=== PATIENT | male | born 1975 | race Caucasian/White ===

== ENCOUNTER 2019-12-05 13:25 | Inpatient (IN) | payer OTHER ==
[~2019-12-05] VITALS: Ht 185.4 cm; Wt 100.7 kg
--- NOTE | 2019-12-05 14:00 | NUR ---
PT TO ROOM 11 PER WHEELCHAIR. PT IS AWAKE A/O X3. PT C/O BILATERAL PEDAL AND LOWER LEG SWELLING AND REDNESS. PT HAS A CUT ON HIS LEFT FOOT BETWEEN 4TH AND 5TH DIGIT. BANDAID REMOVED AND YELLOW FOUL SMELLING DRAINGAGE FROM SITE. PT HAS A PUNCTURE WOUND TO HIS RIGH RECINOS HAND FROM A METAL FENCE. PT BELIEVES HE IS CURRENT ON TETANUS, LESS THAN 3 YEARS. ALL AREAS ARE HOT TO TOUCH, BUT PATIENT IS AFEBRILE. PT PLACED IN GOWN, ON MONITOR AND GIVEN CALL LIGHT.
[2019-12-05 14:26] LABS: BASOPHILS # (AUTO) 0.01 x10^3/uL (0-0.1); BASOPHILS % (AUTO) 0 % (0-1); EOSINOPHILS # (AUTO) 0.07 x10^3/uL (0-0.4); EOSINOPHILS % (AUTO) 0 % (1-7); LYMPHOCYTES % (AUTO) 10 % (22-44); MD NO; MEAN CORPUSCULAR HEMOGLOBIN 34.6 pg (27.5-34.5); MEAN CORPUSCULAR HGB CONC 33.4 g/dL (33.2-36.2); MEAN CORPUSCULAR VOLUME 103.7 fL (81-97); MEAN PLATELET VOLUME 7.2 fL (7.4-10.4); MONOCYTES # (AUTO) 0.65 x10^3/uL (0.2-0.8); MONOCYTES % (AUTO) 4 % (2-9); NEUTROPHILS # (AUTO) 12.55 x10^3/uL (1.8-6.8); NEUTROPHILS % (AUTO) 85 % (42-75); PLATELET COUNT 314 x10^3/uL (130-400); RED BLOOD COUNT 4.72 x10^6/uL (4.38-5.82); RED CELL DISTRIBUTION WIDTH 13.3 % (9.4-14.8)
[2019-12-05 14:41] LABS: ALANINE AMINOTRANSFERASE 32 U/L (12-78); ALBUMIN 3.4 g/dL (3.4-5.0); ANION GAP 9 mmol/L (5-15); CALCIUM 8.7 mg/dL (8.5-10.1); CHLORIDE 107 mmol/L (98-107); CREATININE 1.05 mg/dL (0.7-1.3)
[2019-12-05 14:43] LABS: ALKALINE PHOSPHATASE 117 U/L (45-117); TOTAL PROTEIN 7.4 g/dL (6.4-8.2)
--- NOTE | 2019-12-05 15:00 | NUR ---
IV AND LABS DONE. MD TO ASSESS PATIENT. FLUID RUNNING. AWAITING FURTHER ORDERS.
[2019-12-05] MEDS ORDERED: CEFTRIAXONE PMX 1GM/50ML 50 ML IV ONE (15:30)
--- NOTE | 2019-12-05 16:00 | NUR ---
PT SLEEPING. COVERED WITH WARM BLANKET
[2019-12-05] MEDS: SODIUM CHLORIDE 0.9% 1,000 ML IV SCH (16:11)
[2019-12-05] MEDS ORDERED: CEFAZOLIN PMX 1GM/50ML 50 ML IV SCH (16:30)
[2019-12-05] MEDS ORDERED: ONDANSETRON 2MG/ML, 2ML IVPush PRN (16:30)
[2019-12-05] MEDS ORDERED: LORazepam 1MG TABLET PO PRN (16:30)
[2019-12-05] MEDS ORDERED: THIAMINE 200 MG in SODIUM CHLORIDE 0.9% 50 ML IV ONE (16:30)
[2019-12-05] MEDS ORDERED: LORazepam 0.5MG TABLET PO PRN (16:30)
[2019-12-05] MEDS ORDERED: CEFAZOLIN 2,000 MG in SODIUM CHLORIDE 0.9% 50 ML IV SCH ×2 (16:30→21:30)
[2019-12-05] MEDS ORDERED: ACETAMINOPHEN 325 MG TABLET PO PRN (16:30)
[2019-12-05] MEDS: ENOXAPARIN 40 MG/0.4 ML SQ SCH (16:30)
[2019-12-05] MEDS: KETOROLAC 30 MG/1 ML IV PRN ×2 (16:30→18:08)
[2019-12-05] MEDS ORDERED: DOCUSATE 100 MG CAPSULE PO PRN (16:30)
[2019-12-05] MEDS ORDERED: LORazepam 2 MG/ML, 1ML IV PRN ×3 (16:30)
[2019-12-05] MEDS ORDERED: KETOROLAC 30 MG/1 ML ONE (16:33)
[2019-12-05] MEDS ORDERED: HYDROcodone/APAP 5/325 TABLET ONE (16:34)
[2019-12-05] MEDS ORDERED: CEFTRIAXONE PMX 1GM/50ML 50 ML ONE (16:35)
--- NOTE | 2019-12-05 17:00 | NUR ---
MEDICATIONS ADMINISTERED. PT TO MRI PER ELOISA
[2019-12-05 17:08] LABS: INTERNATIONAL NORMALIZED RATIO 0.93 (0.93-1.1); PROTHROMBIN TIME 9.9 Seconds (9.6-11.5)
[2019-12-05] MEDS ORDERED: GADOTERATE 10 MMOL/20 ML SYR ONE (17:20)
[2019-12-05 17:25] LABS: FREE T4 (FREE THYROXINE) 0.96 ng/dL (0.76-1.46)
[2019-12-05 17:42] LABS: HCT (SEDRATE) 48.9 % (39.2-51.8)
--- NOTE | 2019-12-05 18:18 | NUR ---
TASK RN: PT TRANSFERERD TO FLOOR. PT LEFT WITH ALL PERSONAL BELONGINGS.
[2019-12-05 18:55] VITALS: BP 110/75
[2019-12-05] MEDS: HYDROcodone/APAP 5/325 TABLET PO PRN (20:45)
[2019-12-05] MEDS: CEFAZOLIN PMX 2GM/50ML 50 ML IVPB SCH (21:49)
[2019-12-06 01:33] VITALS: BP 113/76
[2019-12-06] MEDS: CEFAZOLIN PMX 2GM/50ML 50 ML IVPB SCH (04:59)
[2019-12-06] MEDS: SODIUM CHLORIDE 0.9% 1,000 ML IV SCH ×3 (05:00→23:20)
[2019-12-06 06:15] LABS: ALBUMIN 2.8 g/dL (3.4-5.0); ANION GAP 5 mmol/L (5-15); CALCIUM 8.1 mg/dL (8.5-10.1); CHLORIDE 110 mmol/L (98-107)
[2019-12-06 06:19] LABS: ALANINE AMINOTRANSFERASE 52 U/L (12-78); ALKALINE PHOSPHATASE 103 U/L (45-117); BASOPHILS # (AUTO) 0.02 x10^3/uL (0-0.1); BASOPHILS % (AUTO) 0 % (0-1); BILIRUBIN,TOTAL 0.5 mg/dL (0.2-1.0); CREATININE 0.89 mg/dL (0.7-1.3); EOSINOPHILS # (AUTO) 0.18 x10^3/uL (0-0.4); EOSINOPHILS % (AUTO) 2 % (1-7); LYMPHOCYTES # (AUTO) 1.84 x10^3/uL (1-3.4); LYMPHOCYTES % (AUTO) 18 % (22-44); MD NO; MEAN CORPUSCULAR HEMOGLOBIN 34.6 pg (27.5-34.5); MEAN CORPUSCULAR VOLUME 101.7 fL (81-97); MEAN PLATELET VOLUME 7.5 fL (7.4-10.4); MONOCYTES # (AUTO) 0.81 x10^3/uL (0.2-0.8); MONOCYTES % (AUTO) 8 % (2-9); NEUTROPHILS # (AUTO) 7.39 x10^3/uL (1.8-6.8); NEUTROPHILS % (AUTO) 72 % (42-75); PLATELET COUNT 289 x10^3/uL (130-400); RED BLOOD COUNT 4.42 x10^6/uL (4.38-5.82); RED CELL DISTRIBUTION WIDTH 13.3 % (9.4-14.8); TOTAL PROTEIN 6.2 g/dL (6.4-8.2)
[2019-12-06] MEDS: THIAMINE 100MG TABLET PO SCH (08:49)
[2019-12-06] MEDS: HYDROcodone/APAP 5/325 TABLET PO PRN ×3 (08:52→23:56)
[2019-12-06] MEDS: AMPICILLIN/SULBACTAM 3 GM in SODIUM CHLORIDE 0.9% 100 ML IV SCH ×3 (08:54→21:13)
[2019-12-06] MEDS ORDERED: VANCOMYCIN PMX 1GM/200ML 200 ML IV ONE (09:00)
[2019-12-06] MEDS ORDERED: VANCOMYCIN PER PHARMACY MC PRN (09:00)
[2019-12-06 09:39] VITALS: BP 123/82
[2019-12-06] MEDS ORDERED: PHARMACOKINETIC CONSULTATION MC ONE (10:30)
[2019-12-06] MEDS ORDERED: PHARMACOKINETIC MONITORING MC PRN (10:30)
[2019-12-06 13:58] VITALS: BP 118/77
[2019-12-06] MEDS: ENOXAPARIN 40 MG/0.4 ML SQ SCH (16:30)
[2019-12-06] MEDS: VANCOMYCIN 2,000 MG in SODIUM CHLORIDE 0.9% 500 ML IV SCH (17:46)
[2019-12-06 19:09] VITALS: BP 137/90
[2019-12-07 01:02] VITALS: BP 144/88
[2019-12-07] MEDS: AMPICILLIN/SULBACTAM 3 GM in SODIUM CHLORIDE 0.9% 100 ML IV SCH ×4 (03:33→21:35)
[2019-12-07] MEDS: VANCOMYCIN 2,000 MG in SODIUM CHLORIDE 0.9% 500 ML IV SCH ×2 (06:02→18:19)
[2019-12-07] MEDS: HYDROcodone/APAP 5/325 TABLET PO PRN ×3 (06:09→17:33)
[2019-12-07 07:53] VITALS: BP 112/74
[2019-12-07 08:09] LABS: ANION GAP 6 mmol/L (5-15); CALCIUM 8.2 mg/dL (8.5-10.1); CHLORIDE 112 mmol/L (98-107); CREATININE 0.93 mg/dL (0.7-1.3)
[2019-12-07 08:15] LABS: BASOPHILS # (AUTO) 0.03 x10^3/uL (0-0.1); BASOPHILS % (AUTO) 1 % (0-1); EOSINOPHILS # (AUTO) 0.17 x10^3/uL (0-0.4); EOSINOPHILS % (AUTO) 2 % (1-7); LYMPHOCYTES # (AUTO) 1.85 x10^3/uL (1-3.4); LYMPHOCYTES % (AUTO) 27 % (22-44); MD NO; MEAN CORPUSCULAR HEMOGLOBIN 34.5 pg (27.5-34.5); MEAN CORPUSCULAR HGB CONC 33.1 g/dL (33.2-36.2); MEAN CORPUSCULAR VOLUME 104.3 fL (81-97); MEAN PLATELET VOLUME 6.9 fL (7.4-10.4); MONOCYTES # (AUTO) 0.61 x10^3/uL (0.2-0.8); MONOCYTES % (AUTO) 9 % (2-9); NEUTROPHILS % (AUTO) 61 % (42-75); PLATELET COUNT 304 x10^3/uL (130-400); RED BLOOD COUNT 4.33 x10^6/uL (4.38-5.82); RED CELL DISTRIBUTION WIDTH 13.2 % (9.4-14.8)
[2019-12-07] MEDS: THIAMINE 100MG TABLET PO SCH (09:00)
[2019-12-07 14:13] VITALS: BP 128/88
[2019-12-07] MEDS ORDERED: FUROSEMIDE 20 MG/2 ML IV ONE (15:00)
[2019-12-07] MEDS: SODIUM CHLORIDE 0.9% 1,000 ML IV SCH (15:00)
[2019-12-07] MEDS: ENOXAPARIN 40 MG/0.4 ML SQ SCH (16:30)
[2019-12-07 19:43] VITALS: BP 134/95
[2019-12-08] MEDS: TRAZODONE 50MG TABLET PO PRN ×2 (00:26→23:49)
[2019-12-08] MEDS: HYDROcodone/APAP 5/325 TABLET PO PRN ×4 (00:27→23:55)
[2019-12-08 01:30] VITALS: BP 110/74
[2019-12-08] MEDS: AMPICILLIN/SULBACTAM 3 GM in SODIUM CHLORIDE 0.9% 100 ML IV SCH ×4 (03:05→23:50)
[2019-12-08] MEDS: SODIUM CHLORIDE 0.9% 1,000 ML IV SCH ×2 (03:41→23:59)
[2019-12-08 04:46] LABS: CREATININE 1.01 mg/dL (0.7-1.3)
[2019-12-08] MEDS: VANCOMYCIN 2,000 MG in SODIUM CHLORIDE 0.9% 500 ML IV SCH ×2 (05:59→18:31)
[2019-12-08 06:36] VITALS: BP_SYST 101; BP_SYST 119; BP_DIAS 67; BP_DIAS 72
[2019-12-08] MEDS: THIAMINE 100MG TABLET PO SCH (10:24)
[2019-12-08 14:00] VITALS: BP 138/92
[2019-12-08] MEDS: ENOXAPARIN 40 MG/0.4 ML SQ SCH (16:30)
[2019-12-08 20:20] VITALS: BP 146/96
[2019-12-09 03:03] VITALS: BP 115/73
[2019-12-09] MEDS: AMPICILLIN/SULBACTAM 3 GM in SODIUM CHLORIDE 0.9% 100 ML IV SCH ×2 (05:00→11:03)
[2019-12-09 05:06] LABS: BASOPHILS # (AUTO) 0.09 x10^3/uL (0-0.1); BASOPHILS % (AUTO) 2 % (0-1); EOSINOPHILS # (AUTO) 0.21 x10^3/uL (0-0.4); EOSINOPHILS % (AUTO) 3 % (1-7); LYMPHOCYTES # (AUTO) 1.99 x10^3/uL (1-3.4); LYMPHOCYTES % (AUTO) 33 % (22-44); MD NO; MEAN CORPUSCULAR HEMOGLOBIN 34.5 pg (27.5-34.5); MEAN CORPUSCULAR HGB CONC 33.3 g/dL (33.2-36.2); MEAN CORPUSCULAR VOLUME 103.4 fL (81-97); MEAN PLATELET VOLUME 6.9 fL (7.4-10.4); MONOCYTES # (AUTO) 0.46 x10^3/uL (0.2-0.8); MONOCYTES % (AUTO) 8 % (2-9); NEUTROPHILS # (AUTO) 3.34 x10^3/uL (1.8-6.8); NEUTROPHILS % (AUTO) 55 % (42-75); PLATELET COUNT 392 x10^3/uL (130-400); RED BLOOD COUNT 4.39 x10^6/uL (4.38-5.82); RED CELL DISTRIBUTION WIDTH 12.9 % (9.4-14.8)
[2019-12-09 05:09] LABS: ANION GAP 7 mmol/L (5-15); CALCIUM 8.3 mg/dL (8.5-10.1); CHLORIDE 108 mmol/L (98-107); CREATININE 1.05 mg/dL (0.7-1.3)
[2019-12-09] MEDS: VANCOMYCIN 2,000 MG in SODIUM CHLORIDE 0.9% 500 ML IV SCH (05:49)
[2019-12-09 08:44] VITALS: BP 144/96
[2019-12-09] MEDS: HYDROcodone/APAP 5/325 TABLET PO PRN (11:02)
[2019-12-09] MEDS: THIAMINE 100MG TABLET PO SCH (11:02)
[2019-12-09] MEDS: SODIUM CHLORIDE 0.9% 1,000 ML IV SCH (14:00)
[2019-12-09] MEDS ORDERED: IBUP-1221 PO (14:08)
[2019-12-09] MEDS ORDERED: AMOX1TAB64 PO (14:08)
[2019-12-09] MEDS ORDERED: DOCU100C33 PO (14:08)
[2019-12-09] MEDS ORDERED: LINE600T12 PO (14:08)
[2019-12-09] MEDS: ENOXAPARIN 40 MG/0.4 ML SQ SCH (15:53)
== END 2019-12-09 16:27 | disposition home or self-care (01) | DRG 872 ==
LOC: ED 15:29 → EDIP 15:30 → SUATTDRO 15:49 → ED 16:18 → 3N 18:20 → DCLOUNGE 12-09 15:48
PROVIDERS: ADMIT Internal Medicine Infectious Disease; ATTEND Internal Medicine Infectious Disease
DX: A41.9 Sepsis, unspecified organism (principal); L03.116 Cellulitis of left lower limb; L03.115 Cellulitis of right lower limb; D75.89 Other specified diseases of blood and blood-forming organs; M65.879 Other synovitis and tenosynovitis, unspecified ankle and foot; R26.2 Difficulty in walking, not elsewhere classified; F17.210 Nicotine dependence, cigarettes, uncomplicated; F12.10 Cannabis abuse, uncomplicated; F10.10 Alcohol abuse, uncomplicated; Y90.9 Presence of alcohol in blood, level not specified; Z59.0 Homelessness; Z80.41 Family history of malignant neoplasm of ovary; Z80.1 Family history of malignant neoplasm of trachea, bronchus and lung; Z71.6 Tobacco abuse counseling; Z71.41 Alcohol abuse counseling and surveillance of alcoholic; Z71.51 Drug abuse counseling and surveillance of drug abuser; Z79.899 Other long term (current) drug therapy
CPT/HCPCS: 36415; 71045; 80048; 80053; 80202; 82565; 82607; 83605; 83735; 84100; 84145; 84439; 84443; 84520; 85025; 85610; 85651; 87040; 93306; 96365; 96366; 99285; G0378; J0295; J0690; J0696; J1885; J3370; A9575; J1940; J7030; J7040